=== PATIENT | female | born 1935 | race Caucasian/White ===

== ENCOUNTER 2024-02-14 13:32 | Inpatient (IN) | payer OTHER ==
[~2024-02-14] VITALS: Ht 165.1 cm; Wt 45.4 kg
[~2024-02-14 13:32] MED LIST: KLONOPIN1 MG PO
[2024-02-14] MEDS ORDERED: ATROPINE SULFATE 0.1 MG/ML 10ML SYR ONE (13:41)
[2024-02-14 14:22] LABS: BASOPHILS % 0.2 % (0.0-1.0); HEMATOCRIT 39.2 % (34.2-44.1); HEMOGLOBIN 12.2 g/dL (12.0-16.0); LYMPHOCYTES # (AUTO) 0.7 (1.0-3.2); MEAN CORPUSCULAR HGB CONC 31.1 g/dL (31-35); MEAN CORPUSCULAR VOLUME 93.3 fL (81-99); MONOCYTES # (AUTO) 1.2 (0.2-0.8); MONOCYTES % 9.2 % (4.4-11.3); NEUTROPHILS # (AUTO) 11.2 (2.1-6.9); NEUTROPHILS % 84.6 % (38.7-80.0); PLATELET COUNT 211 x10e3/uL (140-360); RED CELL DISTRIBUTION WIDTH 13.2 % (11.7-14.4); WHITE BLOOD COUNT 13.18 x10e3/uL (4.8-10.8)
[2024-02-14] MEDS: SODIUM CHLORIDE 0.9% 1000ML 1,000 ML IV SCH ×2 (14:26→17:57)
[2024-02-14 14:42] LABS: ALBUMIN 3.4 g/dL (3.5-5.0); ANION GAP 17.2 mmol/L (8-16); BILIRUBIN,TOTAL 2.2 mg/dL (0.2-1.2); CALCIUM 9.5 mg/dL (8.4-10.2); CREATININE, SERUM 1.32 mg/dL (0.57-1.11); POTASSIUM 4.2 mmol/L (3.5-5.1); TOTAL PROTEIN 6.7 g/dL (6.5-8.1)
[2024-02-14 16:15] VITALS: PULSE 106; RESP 18; TEMP 98.3
[2024-02-14] MEDS ORDERED: Morphine 4mg INJECTION 4 MG/ML INJ IV PRN (16:15)
[2024-02-14 17:22] VITALS: PULSE 102; RESP 18; O2SAT 99
[2024-02-14] MEDS: METRONIDAZOLE 750MG/NS 150ML 150 ML IV SCH (17:56)
[2024-02-14] MEDS: ONDANSETRON HCL INJ 2MG/ML 2ML 2 MG/ML VIAL IV PRN (17:56)
[2024-02-14 20:00] VITALS: BP 157/63; PULSE 113; RESP 17; TEMP 98.4; O2SAT 98
[2024-02-14 20:30] VITALS: BP 167/73; PULSE 110; RESP 18; TEMP 98.4; O2SAT 98
[2024-02-14] MEDS ORDERED: LEVOTHYROXINE75 MCG PO (20:54)
[2024-02-14] MEDS ORDERED: CLONAZEPAM0.5 MG PO (20:54)
[2024-02-14] MEDS ORDERED: METOPROLOL SUCC50 MG PO (20:54)
[2024-02-14] MEDS ORDERED: BUPROPION XL300 MG PO (20:54)
[2024-02-14 21:00] VITALS: BP 167/73; PULSE 110; RESP 18; TEMP 98.4; O2SAT 98
[2024-02-14] MEDS ORDERED: GABAPENTIN300 MG PO (21:27)
[2024-02-14] MEDS ORDERED: PANTOPRAZOLE SO40 MG PO (21:27)
[2024-02-14] MEDS ORDERED: METRONIDAZOLE 750MG/NS 150ML 150 ML IV SCH (22:00)
[2024-02-15] VITALS (8 sets, daily range): BP systolic 120–166; BP diastolic 62–92; PULSE 102–120; RESP 17–18; TEMP 97.5–98.5; O2SAT 94–100
[2024-02-15] MEDS ORDERED: HYDRALAZINE HCL 20 MG/ML VIAL IV PRN
[2024-02-15] MEDS: LORAZEPAM INJ 2 MG/ML VIAL IV PRN (00:51)
[2024-02-15] MEDS: METOPROLOL TARTRATE INJ 1 MG/ML VIAL IV PRN (00:57)
[2024-02-15] MEDS: LEVOTHYROXINE SODIUM 100 MCG/VIAL IV SCH (05:23)
[2024-02-15 07:32] LABS: BASOPHILS % 0.2 % (0.0-1.0); HEMATOCRIT 38.7 % (34.2-44.1); HEMOGLOBIN 12.3 g/dL (12.0-16.0); LYMPHOCYTES # (AUTO) 0.7 (1.0-3.2); LYMPHOCYTES % 5.9 % (18.0-39.1); MEAN CORPUSCULAR HEMOGLOBIN 29.6 pg (28-32); MEAN CORPUSCULAR HGB CONC 31.8 g/dL (31-35); MONOCYTES # (AUTO) 0.9 (0.2-0.8); MONOCYTES % 7.9 % (4.4-11.3); NEUTROPHILS # (AUTO) 9.5 (2.1-6.9); NEUTROPHILS % 84.8 % (38.7-80.0); PLATELET COUNT 195 x10e3/uL (140-360); RED BLOOD COUNT 4.16 x10e6/uL (3.6-5.1); RED CELL DISTRIBUTION WIDTH 13.1 % (11.7-14.4); WHITE BLOOD COUNT 11.21 x10e3/uL (4.8-10.8)
[2024-02-15 07:51] LABS: ALBUMIN 3.1 g/dL (3.5-5.0); ANION GAP 14.5 mmol/L (8-16); BILIRUBIN,TOTAL 1.9 mg/dL (0.2-1.2); CALCIUM 8.9 mg/dL (8.4-10.2); CREATININE, SERUM 0.91 mg/dL (0.57-1.11); POTASSIUM 3.5 mmol/L (3.5-5.1); TOTAL PROTEIN 6.1 g/dL (6.5-8.1)
[2024-02-15] MEDS: METOPROLOL TARTRATE 25 MG TAB PO SCH (09:29)
[2024-02-15] MEDS: SODIUM CHLORIDE 0.9% 1000ML 1,000 ML IV SCH (17:16)
[2024-02-16] VITALS (7 sets, daily range): BP systolic 112–131; BP diastolic 41–57; PULSE 83–107; RESP 17–21; TEMP 97.6–97.9; O2SAT 95–100
[2024-02-16] MEDS: Morphine 2mg Syringe 2 MG/ML SYR IV PRN (08:20)
[2024-02-16] MEDS: LIDOCAINE 4% PATCH TP SCH (09:15)
[2024-02-16 09:47] LABS: BASOPHILS % 0.2 % (0.0-1.0); HEMATOCRIT 38.1 % (34.2-44.1); HEMOGLOBIN 12.1 g/dL (12.0-16.0); LYMPHOCYTES # (AUTO) 0.8 (1.0-3.2); LYMPHOCYTES % 6.5 % (18.0-39.1); MEAN CORPUSCULAR HEMOGLOBIN 28.9 pg (28-32); MEAN CORPUSCULAR HGB CONC 31.8 g/dL (31-35); MEAN CORPUSCULAR VOLUME 91.1 fL (81-99); MONOCYTES # (AUTO) 1.2 (0.2-0.8); MONOCYTES % 9.3 % (4.4-11.3); NEUTROPHILS # (AUTO) 10.5 (2.1-6.9); NEUTROPHILS % 83.5 % (38.7-80.0); PLATELET COUNT 238 x10e3/uL (140-360); RED BLOOD COUNT 4.18 x10e6/uL (3.6-5.1); RED CELL DISTRIBUTION WIDTH 13.1 % (11.7-14.4); WHITE BLOOD COUNT 12.54 x10e3/uL (4.8-10.8)
[2024-02-16 10:21] LABS: ALBUMIN 2.5 g/dL (3.5-5.0); ANION GAP 16.3 mmol/L (8-16); BILIRUBIN,TOTAL 1.5 mg/dL (0.2-1.2); CALCIUM 8.4 mg/dL (8.4-10.2); CREATININE, SERUM 0.81 mg/dL (0.57-1.11); TOTAL PROTEIN 5.1 g/dL (6.5-8.1)
[2024-02-16 10:22] LABS: POTASSIUM 3.3 mmol/L (3.5-5.1)
[2024-02-16] MEDS ORDERED: FENTANYL CITRATE/PF 100MCG/2 ML INJ ONE (13:47)
[2024-02-16] MEDS ORDERED: PROPOFOL IV EMULSION 10 MG/ML 20 ML VIAL ONE (13:47)
[2024-02-16] MEDS ORDERED: LIDOCAINE HCL 2% LOCAL INJ 5 ML SDV VIAL INJ ONE (13:47)
[2024-02-16] MEDS ORDERED: ACETAMINOPHEN 1000 MG/100 ML 100 ML IV ONE (15:34)
[2024-02-16] MEDS ORDERED: SEVOFLURANE INHAL SOLN 250 ML PEN BTL ONE (15:49)
[2024-02-16] MEDS ORDERED: ONDANSETRON HCL INJ 2MG/ML 2ML 2 MG/ML VIAL ONE (15:49)
[2024-02-16] MEDS ORDERED: ACETAMINOPHEN 1000 MG/100 ML IV PRN (16:15)
[2024-02-16] MEDS: METRONIDAZOLE 500MG/NS 100ML 100 ML IV SCH (18:12)
[2024-02-17] VITALS (38 sets, daily range): BP systolic 59–126; BP diastolic 29–92; PULSE 78–104; RESP 0–22; TEMP 97.3–99.1; O2SAT 68–100
[2024-02-17 06:59] LABS: BASOPHILS % 0.3 % (0.0-1.0); EOSINOPHILS # (AUTO) 6.4 (0.0-0.4); EOSINOPHILS % 48.1 % (0.0-6.0); HEMATOCRIT 37.8 % (34.2-44.1); HEMOGLOBIN 11.2 g/dL (12.0-16.0); LYMPHOCYTES # (AUTO) 1.4 (1.0-3.2); LYMPHOCYTES % 10.5 % (18.0-39.1); MEAN CORPUSCULAR HEMOGLOBIN 29.4 pg (28-32); MEAN CORPUSCULAR HGB CONC 29.6 g/dL (31-35); MONOCYTES # (AUTO) 1.6 (0.2-0.8); MONOCYTES % 11.7 % (4.4-11.3); NEUTROPHILS # (AUTO) 3.5 (2.1-6.9); RED BLOOD COUNT 3.81 x10e6/uL (3.6-5.1); RED CELL DISTRIBUTION WIDTH 13.5 % (11.7-14.4); WHITE BLOOD COUNT 13.36 x10e3/uL (4.8-10.8)
[2024-02-17 07:00] LABS: PLATELET COUNT 68 x10e3/uL (140-360)
[2024-02-17 07:01] LABS: MEAN CORPUSCULAR VOLUME 99.2 fL (81-99)
[2024-02-17] MEDS ORDERED: GLUCAGON FOR INJ 1 MG VIAL IV PRN (08:15)
[2024-02-17 08:45] LABS: ANION GAP 21.6 mmol/L (8-16); CREATININE, SERUM 1.19 mg/dL (0.57-1.11); POTASSIUM 4.6 mmol/L (3.5-5.1)
[2024-02-17] MEDS: DEXTROSE 50% SYRINGE 50 ML IV ONE (09:37)
[2024-02-17 09:49] LABS: LYMPHOCYTES % (MANUAL) 10 % (19-48); MONOCYTES % (MANUAL) 10 % (3.4-9.0); NEUTROPHILS % (MANUAL) 80 % (40-74); NUCLEATED RED BLOOD CELLS 1
[2024-02-17 09:50] LABS: PLATELET ESTIMATE MODERATELY DECREASED; PLATELET MORPHOLOGY COMMENT NORMAL; RBC MORPHOLOGY COMMENT NORMAL; VACUOLE,WBC MODERATE
[2024-02-17] MEDS: Vancomycin IV 500 MG in SODIUM CHLORIDE 0.9% 100 ML IV SCH (10:40)
[2024-02-17] MEDS: DEXTROSE 5%/0.9% SOD CHL 1,000 ML IV SCH (10:40)
[2024-02-17] MEDS ORDERED: ALBUMIN 5% 0.05 GM/ML BTL IV ONE (13:00)
[2024-02-17] MEDS: ALBUMIN 5% 250ML 250 ML IV ONE (13:07)
[2024-02-17] MEDS ORDERED: NOREPINEPHRINE 8 MG/D5W 250 ML 250 ML IV SCH (21:30)
== END 2024-02-17 11:59 | disposition expired | DRG 853 ==
LOC: ER 13:49 → ERHOLD 16:14 → MED/SURG 19:24 → ICU 02-17 08:32
PROVIDERS: ADMIT Internal Medicine; ATTEND Internal Medicine
PROC: 3E03329 Introduction of Other Anti-infective into Peripheral Vein, Percutaneous Approach (ICD-10-PCS; 2024-02-14)
PROC: 0KQM0ZZ Repair Perineum Muscle, Open Approach (ICD-10-PCS; 2024-02-16)
PROC: 0JB90ZZ Excision of Buttock Subcutaneous Tissue and Fascia, Open Approach (ICD-10-PCS; 2024-02-16)
PROC: 0JBB0ZZ Excision of Perineum Subcutaneous Tissue and Fascia, Open Approach (ICD-10-PCS; principal; 2024-02-16 15:14)
DX: A41.9 Sepsis, unspecified organism (principal); E43 Unspecified severe protein-calorie malnutrition; K72.00 Acute and subacute hepatic failure without coma; K65.9 Peritonitis, unspecified; S36.63XA Laceration of rectum, initial encounter; K61.1 Rectal abscess; L02.215 Cutaneous abscess of perineum; L02.31 Cutaneous abscess of buttock; K61.0 Anal abscess; N17.9 Acute kidney failure, unspecified; N39.0 Urinary tract infection, site not specified; Z68.1 Body mass index [BMI] 19.9 or less, adult; S36.69XA Other injury of rectum, initial encounter; L03.315 Cellulitis of perineum; R65.20 Severe sepsis without septic shock; S31.831A Laceration without foreign body of anus, initial encounter; I16.0 Hypertensive urgency; I10 Essential (primary) hypertension; E86.0 Dehydration; D69.59 Other secondary thrombocytopenia; E16.2 Hypoglycemia, unspecified; K59.09 Other constipation; E87.8 Other disorders of electrolyte and fluid balance, not elsewhere classified; R00.0 Tachycardia, unspecified; Z71.3 Dietary counseling and surveillance; F41.9 Anxiety disorder, unspecified; F32.9 Major depressive disorder, single episode, unspecified; W26.8XXA Contact with other sharp object(s), not elsewhere classified, initial encounter; Y92.009 Unspecified place in unspecified non-institutional (private) residence as the place of occurrence of the external cause
CPT/HCPCS: 36415; 70450; 71045; 74176; 80048; 80053; 82948; 83605; 84443; 85025; 87040; 87071; 87075; 87186; 87205; 93005; 94799; 96361; 96366; 99252; 99284; J2003; J2060; J2270; J2405; J2470; J2543; J3370; J7030; J7042; J7050; J7799